=== PATIENT | male | born 1940 ===

== ENCOUNTER 2017-07-20 03:16 | Emergency (ER) | payer MEDICARE ==
[2017-07-20 03:16] VITALS: BMI 24.1
--- NOTE | 2017-07-20 03:39 | C.PDOC ---
History Of Present Illness 77 y/o male brought in by ambulance for public intoxication. Patient admits to drinking alcohol tonight. Denies any injury or fall. No recent drug use. Patient offers no physical complaints. Time Seen by Provider: 07/20/17 03:38 Chief Complaint (Nursing): Substance Abuse History Per: Patient History/Exam Limitations: intoxication Onset/Duration Of Symptoms: Hrs Current Symptoms Are (Timing): Still Present Modifying Factor(s): Alcohol Additional History Per: EMS Past Medical History Reviewed: Historical Data, Nursing Documentation, Vital Signs Vital Signs: Last Vital Signs Temp 97.7 F 07/20/17 06:38 Pulse 63 07/20/17 06:38 Resp 18 07/20/17 06:38 BP 125/57 L 07/20/17 06:38 Pulse Ox 100 07/20/17 06:41 - Medical History PMH: Hypothyroidism Family History: States: Unknown Family Hx - Social History Hx Tobacco Use: Yes Hx Alcohol Use: Yes Hx Substance Use: Yes - Immunization History Hx Tetanus Toxoid Vaccination: No Hx Influenza Vaccination: No Hx Pneumococcal Vaccination: No Review Of Systems Review Of Systems: ROS cannot be obtained secondary to pt's inabilty to answer questions. Physical Exam - Physical Exam Appears: Non-toxic, No Acute Distress Skin: Normal Color, Warm, Dry Head: Atraumatic, Normacephalic Eye(s): bilateral: Normal Inspection, PERRL, EOMI Nose: Normal Oral Mucosa: Moist Neck: Normal ROM, Supple Chest: Symmetrical Cardiovascular: Rhythm Regular, No Murmur Respiratory: Normal Breath Sounds, No Accessory Muscle Use Gastrointestinal/Abdominal: Soft, No Tenderness, No Distention Extremity: Bilateral: Atraumatic, Normal Color And Temperature, Normal ROM Pulses: Left Dorsalis Pedis: Normal, Right Dorsalis Pedis: Normal Neurological/Psych: Normal Speech, Other (Alert, awake, appropriate responses to questions) ED Course And Treatment O2 Sat by Pulse Oximetry: 100 (RA) Pulse Ox Interpretation: Normal Progress Note: Accucheck shows finger stick of 100. Patient is resting comfortably on examination. On re-evaluation patient feels better, alert and oriented, ambulatory with a steady gait. Stable for discharge home. Disposition - Disposition Disposition: HOME/ ROUTINE Disposition Time: 06:40 Condition: STABLE Additional Instructions: Follow up with your PMD within 1-2 days. return to ED if feels worse. Instructions: Alcohol Abuse and Alcoholism (DC) Forms: [facility] (German) - Clinical Impression Clinical Impression: Alcohol intoxication - PA / HORSE IDENTIFIER / Resident Statement MD/DO has reviewed & agrees with the documentation as recorded. - Scribe Statement The provider has reviewed the documentation as recorded by the Scribe (Catie Lawrence) All medical record entries made by the Scribe were at my direction and personally dictated by me. I have reviewed the chart and agree that the record accurately reflects my personal performance of the history, physical exam, medical decision making, and the department course for this patient. I have also personally directed, reviewed, and agree with the discharge instructions and disposition.
[2017-07-20 06:39] VITALS: BP 125/57; PULSE 63; RESP 18; TEMP 97.7
[2017-07-20 06:41] VITALS: O2SAT 100
== END 2017-07-20 06:47 | disposition home or self-care (01) ==
LOC: C.ER 03:16
DX: F10.129 Alcohol abuse with intoxication, unspecified (principal)